=== PATIENT | female | born 1945 | race Caucasian/White ===

== ENCOUNTER → 2018-10-06 | Outpatient (CLI) | payer MEDICARE ==
[~2018-10-06] MED LIST: CATHETER FLUSH 10 ML SYR IV PRN; DIATRIZOATE MEGLUM/SODIUM 37% 120 ML (GASTROGRAFIN) PO ONE; HOLD METFORMIN - RECEIVED CONTRAST 20 ML VIAL IV SCH; IOHEXOL 350 MG/ML 100 ML (OMNIPAQUE 350) VIAL IV ONE; NS 100 ML (IVPB) BAG IV ONE
[2018-10-06 09:23] LABS: WHITE BLOOD COUNT 5.7 10^3/uL (4.3-11.0)
[2018-10-06 09:24] LABS: BASOPHILS % (AUTO) 1 % (0-10); EOSINOPHILS % (AUTO) 2 % (0-10); HEMATOCRIT 39 % (35-52); HEMOGLOBIN 12.8 G/DL (11.5-16.0); LYMPHOCYTES # (AUTO) 1.4 X 10^3 (1.0-4.0); LYMPHOCYTES % (AUTO) 24 % (12-44); MEAN CORPUSCULAR HEMOGLOBIN 32 PG (25-34); MEAN CORPUSCULAR HGB CONC 33 G/DL (32-36); MEAN CORPUSCULAR VOLUME 97 FL (80-99); MEAN PLATELET VOLUME 11.3 FL (7.4-10.4); MONOCYTES % (AUTO) 10 % (0-12); NEUTROPHILS # (AUTO) 3.6 X 10^3 (1.8-7.8); NEUTROPHILS % (AUTO) 63 % (42-75); PLATELET COUNT 206 10^3/uL (130-400); RED CELL DISTRIBUTION WIDTH 12.5 % (10.0-14.5)
[2018-10-06 09:25] LABS: EOSINOPHILS # (AUTO) 0.1 10^3/uL (0.0-0.3); MONOCYTES # (AUTO) 0.6 X 10^3 (0.0-1.0)
[2018-10-06 09:48] LABS: BUN/CREATININE RATIO 22; CARBON DIOXIDE 23 MMOL/L (21-32); CHLORIDE 99 MMOL/L (98-107); CREATININE SERUM 0.76 MG/DL (0.60-1.30); GFR ESTIMATED > 60; GLUCOSE 98 MG/DL (70-105); POTASSIUM 3.8 MMOL/L (3.6-5.0); SODIUM 139 MMOL/L (135-145)
[2018-10-06 09:49] LABS: ALANINE AMINOTRANSFERASE 16 U/L (0-55); ALBUMIN 4.6 GM/DL (3.2-4.5); ALKALINE PHOSPHATASE 77 U/L (40-136); BILIRUBIN,TOTAL 0.6 MG/DL (0.1-1.0); CALCIUM 9.8 MG/DL (8.5-10.1); TOTAL PROTEIN 8.2 GM/DL (6.4-8.2)
--- NOTE | 2018-10-06 10:08 | Diagnostic Imaging Report ---
INDICATION: Cancer. PA and lateral views were obtained. FINDINGS: The heart size, mediastinal configuration, and pulmonary vascularity are within normal limits. There is no pleural effusion, pneumothorax, or pneumonia. The osseous structures are unremarkable. IMPRESSION: No acute cardiopulmonary abnormality. Dictated by: Dictated on workstation # [id number]
--- NOTE | 2018-10-06 11:43 | Diagnostic Imaging Report ---
PROCEDURE: CT abdomen and pelvis with contrast. TECHNIQUE: Multiple contiguous axial images were obtained through the abdomen and pelvis after administration of intravenous contrast. Auto Exposure Controls were utilized during the CT exam to meet ALARA standards for radiation dose reduction. INDICATION: Cancer of the cecum, followup. COMPARISON: No prior studies are available for comparison. FINDINGS: Imaging through the lung bases does show some linear scarring in the left lower lobe. The liver contains a circumscribed low density in the right lobe measuring 2 cm and most consistent with a cyst. No solid hepatic mass is seen. There is a tiny low density more inferiorly and laterally in the right lobe measuring 4 mm. This is too small to accurately characterize. Gallbladder is unremarkable. No biliary duct dilatation is seen. The pancreas and spleen are unremarkable. No adrenal mass is identified. Kidneys are unremarkable. Aorta is nonaneurysmal. No central retroperitoneal or mesenteric lymphadenopathy is identified. The small and large bowel loops are normal in caliber. No obstruction is seen. There is no ascites. Bladder and uterus are unremarkable. No definite inguinal or iliac lymphadenopathy is identified. IMPRESSION: 1. Hepatic cysts. There is no evidence of abdominal or pelvic lymphadenopathy or metastatic disease. Dictated by: Dictated on workstation # [id number]
== END ==
LOC: LAB FS 08:20
PROVIDERS: ATTEND Internal Medicine Hematology & Oncology
DX: C18.0 Malignant neoplasm of cecum (principal); K76.89 Other specified diseases of liver
CPT/HCPCS: 36415; 71046; 74177; 80053; 82378; 83615; 85025

== ENCOUNTER → 2018-11-15 | Outpatient (CLI) | payer MEDICARE ==
--- NOTE | 2018-11-15 11:05 | Diagnostic Imaging Report ---
PROCEDURE: MRI lumbar spine. TECHNIQUE: Multiplanar, multisequence MRI of the lumbar spine was performed without contrast. INDICATION: Low back pain extending into the left leg. FINDINGS: There is mild right convexity lumbar scoliotic curvature. There is normal lordotic curvature. Minimal retrolisthesis of L3 on L4 is seen. Vertebral body heights are maintained. No acute compression fracture or geographic marrow lesion is seen. There is some mild generalized disc desiccation compatible with degenerative change. Disc heights are fairly normal. Conus is unremarkable at the L1 level. T12-L1: No central canal or neural foraminal stenosis is identified. L1-2: No central canal or neural foraminal stenosis is identified. L2-3: There is some ligamentous thickening and facet changes but central canal is patent. No significant neural foraminal stenosis is seen. L3-4: Ligamentous thickening and facet changes are noted. Central canal remains patent. No significant neural foraminal stenosis is seen. L4-5: There is significant hypertrophic facet changes and ligamentous thickening resulting in significant trefoil stenosis of the central canal. There is also bilateral lateral recess stenosis and moderate right and mild left neural foraminal stenosis. L5-S1: Hypertrophic facet changes are noted. Broad-based disc/osteophyte complex does narrow the lateral recesses. There is significant right neural foraminal stenosis. Mild central canal narrowing is seen. Paraspinous tissues are unremarkable. IMPRESSION: Lumbar spondylosis, most severe at the L4-5 and L5-S1 levels where there is central canal, lateral recess and neural foraminal stenosis, as described above. Dictated by: Dictated on workstation # [id number]
== END ==
LOC: RAD 09:47
PROVIDERS: ATTEND Pediatrics
DX: M47.817 Spondylosis without myelopathy or radiculopathy, lumbosacral region (principal); M51.16 Intervertebral disc disorders with radiculopathy, lumbar region; M41.86 Other forms of scoliosis, lumbar region; M48.07 Spinal stenosis, lumbosacral region
CPT/HCPCS: 72148

== ENCOUNTER → 2019-02-03 | Outpatient (CLI) | payer MEDICARE ==
[~2019-02-03] MED LIST changes: -CATHETER FLUSH 10 ML SYR IV PRN; -DIATRIZOATE MEGLUM/SODIUM 37% 120 ML (GASTROGRAFIN) PO ONE
[2019-02-03 11:22] LABS: BUN/CREATININE RATIO 18; CALCIUM 9.5 MG/DL (8.5-10.1); CARBON DIOXIDE 27 MMOL/L (21-32); CHLORIDE 104 MMOL/L (98-107); GFR ESTIMATED > 60; GLUCOSE 107 MG/DL (70-105); POTASSIUM 3.7 MMOL/L (3.6-5.0); SODIUM 140 MMOL/L (135-145)
--- NOTE | 2019-02-03 12:08 | Diagnostic Imaging Report ---
PROCEDURE: CT abdomen and pelvis with contrast. TECHNIQUE: Multiple contiguous axial images were obtained through the abdomen and pelvis after administration of intravenous contrast. Auto Exposure Controls were utilized during the CT exam to meet ALARA standards for radiation dose reduction. INDICATION: Left lower quadrant abdominal pain. Patient has history of colon carcinoma. Correlation is made with prior CT from 10/06/2018. Lung bases are clear apart from minimal linear scarring or atelectasis bilateral lower lobes. Previously noted hepatic cyst in the right lobe is stable when compared with prior CT. No new mass is detected. The gallbladder is unremarkable. No biliary duct dilatation is identified. The pancreas and spleen are unremarkable. No intrarenal mass is identified. Kidneys are unremarkable. Aorta is nonaneurysmal. The small and large bowel loops are normal caliber. No obstruction is seen. There is mild diverticulosis of the sigmoid. There does appear to be some very mild inflammatory stranding in the fat adjacent to the junction of the descending colon and sigmoid. Features may be owing to mild diverticulitis. No fluid collection is seen. There is no evidence of obstruction. No free fluid is identified. The uterus and bladder are unremarkable. Bony structures are nonacute. IMPRESSION: 1. Stable hepatic cysts. 2. Features suggestive of mild acute diverticulitis at the junction of the descending colon and sigmoid. No abscess formation or bowel obstruction is identified. Dictated by: Dictated on workstation # [id number]
== END ==
LOC: RAD 10:55
PROVIDERS: ATTEND Pediatrics
DX: K76.89 Other specified diseases of liver (principal); R10.32 Left lower quadrant pain; R10.31 Right lower quadrant pain; Z85.038 Personal history of other malignant neoplasm of large intestine
CPT/HCPCS: 36415; 74177; 80048

== ENCOUNTER → 2019-02-07 | Outpatient (CLI) | payer MEDICARE ==
--- NOTE | 2019-02-07 19:23 | Diagnostic Imaging Report ---
INDICATION: Knee pain and swelling. Three views were obtained. FINDINGS: The alignment is normal. There are mild degenerative changes. There is no fracture or dislocation. Soft tissues are unremarkable. IMPRESSION: Mild degenerative changes, otherwise unremarkable. Dictated by: Dictated on workstation # [id number]
== END ==
LOC: RAD FS 14:24
PROVIDERS: ATTEND Nurse Practitioner
DX: M17.12 Unilateral primary osteoarthritis, left knee (principal)
CPT/HCPCS: 73562

== ENCOUNTER → 2019-03-10 | Outpatient (CLI) | payer MEDICARE ==
--- NOTE | 2019-03-10 13:46 | Diagnostic Imaging Report ---
Clinical indication: Patient with right knee pain and swelling x1 month. No known injury. Exam: X-ray of the right knee, 4 views. Comparison: X-ray of the right knee dated 02/07/2019. Findings: There is no acute fracture or dislocation. Stable degenerative spurs involving the medial compartment and patellofemoral compartment. There is no significant knee effusion. Impression: Stable mild degenerative changes of the right knee with no acute fracture or dislocation. Dictated by: Dictated on workstation # [id number]
== END ==
LOC: RAD FS 13:02
PROVIDERS: ATTEND Nurse Practitioner
DX: M17.11 Unilateral primary osteoarthritis, right knee (principal)
CPT/HCPCS: 73562

== ENCOUNTER → 2019-03-21 | Outpatient (CLI) | payer MEDICARE ==
--- NOTE | 2019-03-21 13:19 | Diagnostic Imaging Report ---
PROCEDURE: MRI right joint lower extremity without contrast. TECHNIQUE: Multiplanar, multisequence [id number] MRI of the right lower extremity was accomplished. INDICATION: Right knee pain COMPARISON: Radiographs from 03/10/2019. FINDINGS: There is moderate bone marrow edema at the medial tibial plateau. There is subchondral linear hypointensity, which most likely represents insufficiency fracture. There is no significant displacement or articular surface collapse. There are mild degenerative changes in all three compartments in the right knee. There is a small right knee joint effusion and a small Whitaker's cyst. The articular cartilage in the patellofemoral compartment demonstrates [id number]-[id number] thinning, particularly over the medial facet. There is a small full-thickness defect at the lateral trochlea with an underlying subcortical cyst-like change. The articular cartilage in the medial compartment demonstrates hombxjaf-qo-shhabs thinning. The articular cartilage in the lateral compartment demonstrates mild thinning and surface irregularity. There is a horizontal tear of the posterior horn extending to the body, with a radial tear of the body. The lateral meniscus appears intact. The anterior and posterior cruciate ligaments are intact. The medial collateral ligament is mildly bowed with adjacent edema which is likely due to the underlying meniscal pathology. The lateral collateral ligamentous complex appears intact. The extensor mechanism is intact. The medial and lateral retinacula are intact. The soft tissues about the right knee are otherwise unremarkable. IMPRESSION: 1. Subchondral insufficiency fracture at the medial tibial plateau without significant depression. 2. Horizontal and radial tearing of the medial meniscus, with adjacent soft tissue edema. 3. Small right knee joint effusion and small Whitaker's cyst. Dictated by: Dictated on workstation # [id number]
== END ==
LOC: RAD 09:49
PROVIDERS: ATTEND Nurse Practitioner
DX: M23.231 Derangement of other medial meniscus due to old tear or injury, right knee (principal); M22.41 Chondromalacia patellae, right knee; M84.461A Pathological fracture, right tibia, initial encounter for fracture; M71.21 Synovial cyst of popliteal space [Baker], right knee
CPT/HCPCS: 73721